=== PATIENT | female | born 1950 | race Caucasian/White ===

== ENCOUNTER → 2023-06-23 13:20 | Outpatient (CLI) | payer MEDICARE, OTHER, SELFPAY ==
--- NOTE | 2023-06-23 | DI.MRI.S_ITS ---
PROCEDURE: MR SHOULDER LT W CON INDICATIONS: rotator cuff tear or rupture TECHNIQUE: After the administration of 12 mL of dilute intra-articular Gadolinium contrast, oblique coronal T1 and T2 spin echo with fat saturation, oblique sagittal T1 spin echo with and without fat saturation, oblique sagittal T2 fast spin echo with fat saturation, axial T1 spin echo with fat saturation through the shoulder. COMPARISON: None. FINDINGS: Image quality: Study is limited due to patient's body habitus. Rotator cuff: Low to moderate grade articular and bursal surface partial thickness tear involving distal supraspinatus at its insertion on the humeral head is seen extending to musculotendinous junction. Distal infraspinatus tendinosis and low-grade articular surface partial-thickness tear is also seen at its insertion on humeral head. The subscapularis tendons are grossly intact. No full-thickness rotator cuff tendon rupture. No contrast extravasation into subacromial subdeltoid bursa. Mild to moderate supraspinatus muscle atrophy is seen on sagittal images. Bones and bursae: No bone marrow contusions or fractures. [id number] acromioclavicular joint osteoarthritic changes are seen with small downward osteophyte formation depressing on musculotendinous junction of supraspinatus. Slight superior migration of humeral head in relation to glenoid is seen. The acromion demonstrates conventional anatomy, without an os acromiale. Capsule and soft tissues: There is fraying of superior anterior labrum with contrast extension at 12 to 1 o'clock position concerning for superior anterior labral tear. The long head of the biceps tendon appears thickened with intrasubstance T2 hyperintense signal. The rotator interval appears normal, without fibrosis. The coracohumeral ligament is of normal thickness. No intra-articular bodies. IMPRESSION: 1. Low to moderate grade articular and bursal surface partial thickness tear involving distal supraspinatus extending to musculotendinous junction. Distal infraspinatus tendinosis and low-grade articular surface partial-thickness tear. No full-thickness rotator cuff tendon rupture. Mild to moderate supraspinatus muscle atrophy. 2. [id number] acromioclavicular joint osteoarthritis. No fracture or dislocation. Slight superior migration of humeral head in relation to glenoid. No gross loose bodies. 3. Suggestion of superior anterior labral tear at 12 to 1 o'clock position. 4. Intrasubstance partial-thickness tear involving proximal long head of biceps. Dictated by: Ricardo Patton M.D. on 06/23/2023 at 16:40 Approved by: Ricardo Patton M.D. on 06/23/2023 at 16:44
--- NOTE | 2023-06-23 | DI.RAD.S_ITS ---
PROCEDURE: FL SHOULDER INJECTION MR/CT LT INDICATIONS: rotator cuff tear or rupture COMPARISON: [facility], MR, MR SHOULDER LT W CON, 06/23/2023, 14:31. TECHNIQUE: The indications, alternatives, benefits, risks, and complications of the procedure were explained to the patient. Written informed consent was obtained and placed in the chart. The shoulder was examined fluoroscopically and a site for needle placement chosen for entry into the glenohumeral joint from an anterior approach. The skin was prepped and draped in a sterile fashion, and 1% lidocaine infiltrated from skin down to joint capsule. A spinal needle was inserted into the glenohumeral joint, and a small amount of iodinated contrast media injected to confirm intra-articular placement of the needle tip. This was followed by approximately 12 mL dilute solution of a gadolinium containing MR contrast agent. The needle was removed and a dressing was applied. The patient was given postprocedural instructions and sent to the MR suite for MR imaging. FINDINGS: A single fluoroscopic spot image demonstrates intra-articular location of injected iodinated contrast. IMPRESSION: Successful fluoroscopically guided administration of dilute Gadolinium solution into the shoulder joint for MR arthrogram. Dictated by: Uri Morris M.D. on 06/23/2023 at 18:00 Approved by: Uri Morris M.D. on 06/23/2023 at 18:00
[2023-06-23] MEDS: SODIUM CHLORIDE 0.9 % 20 ML VIAL IV ×2 (16:02→16:03)
[2023-06-23] MEDS: LIDOCAINE 1% 20 ML INJ (16:02)
== END ==
PROVIDERS: PCP Internal Medicine; Referring Provider Internal Medicine; Visit Provider Internal Medicine
DX: M75.112 Incomplete rotator cuff tear or rupture of left shoulder, not specified as traumatic (principal); S46.112A Strain of muscle, fascia and tendon of long head of biceps, left arm, initial encounter; M19.012 Primary osteoarthritis, left shoulder
CPT/HCPCS: 23350; 73222

== ENCOUNTER → 2023-11-08 10:10 | Outpatient (CLI) | payer MEDICARE, OTHER, SELFPAY ==
--- NOTE | 2023-11-08 10:12 | DI.RAD.S_ITS ---
PROCEDURE: XR SHOULDER LT MIN 2V INDICATIONS: LEFT SHOULDER PAIN TECHNIQUE: 3 views of the shoulder were acquired. COMPARISON: [facility], MR, MR SHOULDER LT W CON, 06/23/2023, 14:31. FINDINGS: Bones: No fractures or dislocations. Moderate degenerative changes at the left shoulder. No suspicious bony lesions. Visualized ribs appear intact. Soft tissues: No suspicious soft tissue calcifications. IMPRESSION: Moderate left shoulder DJD. Dictated by: Uri Morris M.D. on 11/08/2023 at 10:44 Approved by: Uri Morris M.D. on 11/08/2023 at 10:46
== END ==
PROVIDERS: PCP Internal Medicine; Referring Provider Physical Medicine & Rehabilitation; Visit Provider Physical Medicine & Rehabilitation
DX: M19.012 Primary osteoarthritis, left shoulder (principal); M25.512 Pain in left shoulder
CPT/HCPCS: 73030